=== PATIENT | female | born 1970 | race Caucasian/White ===

== ENCOUNTER 2025-07-18 07:36 | Outpatient (REF) | payer BC, SELFPAY | END 2025-07-18 23:59 | disposition home or self-care (01) | LOC: WOUND 07:36 | PROVIDERS: ATTENDING PHYSICIAN Surgery; FAMILY PHYSICIAN Emergency Medicine | DX: L97.222 Non-pressure chronic ulcer of left calf with fat layer exposed (principal); K90.9 Intestinal malabsorption, unspecified; E53.8 Deficiency of other specified B group vitamins; E55.9 Vitamin D deficiency, unspecified; Z98.84 Bariatric surgery status | CPT/HCPCS: 11042; 99204 ==

== ENCOUNTER 2025-08-07 08:39 | Outpatient (REF) | payer BC, SELFPAY | END 2025-08-07 23:59 | disposition home or self-care (01) | LOC: WOUND 08:39 | PROVIDERS: ATTENDING PHYSICIAN Registered Nurse; FAMILY PHYSICIAN Emergency Medicine | DX: L97.222 Non-pressure chronic ulcer of left calf with fat layer exposed (principal); K90.9 Intestinal malabsorption, unspecified; E53.8 Deficiency of other specified B group vitamins; E55.9 Vitamin D deficiency, unspecified; Z98.84 Bariatric surgery status | CPT/HCPCS: 11042 ==

== ENCOUNTER 2025-08-12 08:36 | Outpatient (REF) | payer BC, SELFPAY | END 2025-08-12 23:59 | disposition home or self-care (01) | LOC: WOUND 08:36 | PROVIDERS: ATTENDING PHYSICIAN Registered Nurse; FAMILY PHYSICIAN Emergency Medicine | DX: L97.222 Non-pressure chronic ulcer of left calf with fat layer exposed (principal); K90.9 Intestinal malabsorption, unspecified; E53.8 Deficiency of other specified B group vitamins; E55.9 Vitamin D deficiency, unspecified; Z98.84 Bariatric surgery status | CPT/HCPCS: 99213 ==

== ENCOUNTER 2025-08-26 10:11 | Outpatient (REF) | payer BC, SELFPAY | END 2025-08-26 23:59 | disposition home or self-care (01) | LOC: WOUND 10:11 | PROVIDERS: ATTENDING PHYSICIAN Registered Nurse; FAMILY PHYSICIAN Emergency Medicine | DX: L97.222 Non-pressure chronic ulcer of left calf with fat layer exposed (principal); K90.9 Intestinal malabsorption, unspecified; E53.8 Deficiency of other specified B group vitamins; E55.9 Vitamin D deficiency, unspecified; Z98.84 Bariatric surgery status | CPT/HCPCS: 97597 ==